=== PATIENT | male | born 1975 | race Caucasian/White ===

== ENCOUNTER 2021-08-29 15:22 | Emergency (ER) | payer OTHER, SELFPAY ==
[2021-08-29 15:27] VITALS: BP 151/78; PULSE 100; RESP 16; TEMP 36.6; O2SAT 97
--- NOTE | 2021-08-29 15:32 | ED.URI ---
HPI - URI/Sore Throat General Chief Complaint: Upper Respiratory Infection Stated Complaint: uri Time Seen by Provider: 08/29/21 15:35 Source: patient, family, RN notes reviewed and old records reviewed Mode of arrival: ambulatory Limitations: no limitations History of Present Illness HPI Narrative: 46-year-old male presents to the [facility] with complaints of nasal congestion and sinus pain for 3 days. Has tried a couple [id number] things minimal to no relief. Wanted to make sure he did not have anything that needed an antibiotic. MD elicited complaint: nasal congestion and sinus pain Related Data Home Medications Medication Instructions Recorded Confirmed dapagliflozin-metformin [Xigduo XR] 10 tablet PO DAILY 08/29/21 08/29/21 lisinopril 5 mg PO DAILY 08/29/21 08/29/21 loratadine 10 mg PO DAILY 08/29/21 08/29/21 semaglutide [Rybelsus] 7 mg PO DAILY 08/29/21 08/29/21 Allergies Allergy/AdvReac Type Severity Reaction Status Date / Time Sulfa (Sulfonamide Allergy Unknown itching Verified 03/01/19 17:14 Antibiotics) Review of Systems Review of Systems: All systems reviewed & are unremarkable except as noted in HPI and below Constitutional: Constitutional: Reports no additional constitutional complaints, Denies chills, Denies fever(s) and Denies headache(s) Eyes: Eyes: Reports no additional eye complaints ENT: Reports as per HPI, Denies vertigo, Denies dizziness, Denies headache(s), Reports nasal congestion and Reports sore throat Cardiovascular: Cardiovascular: Reports no additional cardiovascular complaints, Denies chest pain, Denies syncope, Denies rapid heart rate and Denies dyspnea Respiratory: Respiratory: Reports no additional respiratory complaints, Denies cough, Denies dyspnea and Denies wheezing Gastrointestinal: Gastrointestinal: Reports no additional gastrointestinal complaints, Denies abdominal pain, Denies diarrhea, Denies nausea and Denies vomiting Musculoskeletal: Musculoskeletal: Reports no additional musculoskeletal complaints and Denies numbness Integumentary/Breasts: Skin/Breast: Reports system reviewed and no additional complaints, except as docu Neurologic: Reports system reviewed and no additional complaints, except as documented, Denies vertigo, Denies dizziness, Denies syncope, Denies headache(s), Denies focal weakness and Denies numbness Psychiatric: Psychiatric: Reports no additional psychiatric complaints Allergic/Immunologic: Allergic/Immunologic: Reports no additional allergic/immunologic complaints and Denies wheezing PMFSH Comments At the time of my signature, I reviewed and agree with the nursing past medical, surgical, social, and family history. There is no relevant family history pertinent to the patient complaint. Exam Const: General: cooperative, healthy appearing, no acute distress, well developed and alert Nutritional Appearance: well nourished Orientation/consciousness: patient oriented x3 Limitations: no limitations HENMT: Head: normal to inspection Ears: external ears normal, EAC's normal and Abnormal EAC present Mouth: Yes moist mucous membranes Throat: tonsils normal, uvula midline and postnasal drainage Eyes: Conjunctivae: conjunctivae normal Pupils: Equal, round and reactive pupils present Neck: Neck: normal visual inspection, no lymphadenopathy and no meningeal signs Chest: Chest palpation & inspection: normal inspection of the chest Resp: Effort & Inspection: normal respiratory effort and no use of accessory muscles Auscultation: clear to auscultation bilaterally, no crackles, no rales, no rhonchi and no wheezes Cardio: Rate: regular rate Rhythm: regular rhythm Back/Spine/Pelvis: Back: no CVA tenderness Skin: General skin exam: normal color Rashes: no rashes Wounds: no wounds Neuro: General: patient oriented x3, moves all extremities, no meningeal signs and no focal motor deficits Cranial nerves: Yes Equal, round and reactive pupils present
== END 2021-08-29 15:50 | disposition home or self-care (01) ==
PROVIDERS: Emergency Provider Nurse Practitioner
DX: J01.40 Acute pansinusitis, unspecified (principal)
CPT/HCPCS: 99213; G0463

== ENCOUNTER 2024-07-17 10:26 | Emergency (ER) | payer OTHER, SELFPAY ==
[2024-07-17 10:36] VITALS: BP 151/83; PULSE 90; RESP 16; TEMP 36.8; O2SAT 99
--- NOTE | 2024-07-17 11:12 | ED.URI ---
HPI - URI/Sore Throat General Chief Complaint: Upper Respiratory Infection Stated Complaint: Cough/Runny Nose/Chills Source: patient, RN notes reviewed and old records reviewed Mode of arrival: ambulatory Limitations: no limitations History of Present Illness HPI Narrative: 49 year old male presents to [facility] care with complaints of cough, nasal congestion and drainage, and some chills with no known fevers starting this morning. Patient reports that son tested positive for Influenza B on Wednesday and has been very sick. Patient reports that he has not had any fever but has had some chills and concerned he had contracted flu also from being exposed by son. Patient has not taken any OTC medications for his symptoms. MD elicited complaint: cough, rhinorrhea, nasal congestion and other (some chills) Onset (ago): day(s) (today) Severity: mild Description of mucous: clear Able to tolerate fluids by mouth: Yes Treatments prior to arrival: none Related Data Home Medications ?Medication ?Instructions ?Recorded ?Confirmed ?Last Taken ?Type dapagliflozin propaned 10 10 tablet PO DAILY 08/29/21 08/29/21 Unknown History mg-metformin ER 1,000 mg tablet,ext rel 24hr (Xigduo XR) lisinopril 5 mg tablet 5 mg PO DAILY 08/29/21 07/17/24 Unknown History loratadine 10 mg tablet 10 mg PO DAILY 08/29/21 08/29/21 Unknown History semaglutide 7 mg tablet (Rybelsus) 7 mg PO DAILY 08/29/21 08/29/21 Unknown History Allergies Allergy/AdvReac Type Severity Reaction Status Date / Time Sulfa (Sulfonamide Allergy Unknown itching Verified 07/17/24 10:42 Antibiotics) Review of Systems Review of Systems: CONSTITUTIONAL: Denies malaise,positive for chills, no sweats, or no fever. EYES: Denies visual changes, redness, or discharge. ENT: Reports rhinorrhea, congestion, no sinus pain, no otalgia and no sore throat. CARDIOVASCULAR: Denies chest pain, palpitations, or edema. RESPIRATORY: Reports cough.? Denies dyspnea. GASTROINTESTINAL: Denies abdominal pain, nausea, vomiting, diarrhea SKIN: Denies rash or itching. MUSCULOSKELETAL: Denies myalgia. NEUROLOGIC: Denies headache. All systems reviewed & are unremarkable except as noted in HPI and below PMFSH Past Medical History Medical History (Updated 07/17/24 @ 11:43 by Silvina Martin NP) Kidney stone Hyperlipidemia Diabetes Hypertension Surgical History Surgical History (Updated 07/17/24 @ 11:39 by Silvina Martin NP) Hx of cholecystectomy H/O gastric sleeve H/O left wrist surgery ORIF with plates and screws Social History Social History (Updated 07/17/24 @ 11:37 by Silvina Martin NP) Smoking status: Never smoker Alcohol intake: current Alcohol use details: social Substance use type: does not use Gender identity (if verbalized by the patient): Male Comments At time of signature, agree with nursing past medical, surgical, social and family history. There is no relevant family history pertinent to the presenting complaint Exam Narrative: GENERAL: Well-appearing, well-nourished, and in no acute distress. HEAD: Normocephalic EYES: PERRLA, conjunctivae clear ENT: Nares clear, turbinates edematous and erythematous, clear discharge. Mucous membranes moist. TM pearly kim with dull light reflex bilaterally; no tragal tenderness. Oropharynx erythematous without lesions. Tonsils not enlarged and without exudate, no drooling, no hoarseness, no trismus, uvula midline.post nasal drainage NECK: Supple. No lymphadenopathy CHEST: Clear to auscultation, breath sounds equal. No wheezing, rhonchi, rales, or stridor. No respiratory distress, speaks in full sentences.dry cough noted SAO2 99% on room air HEART: Regular rate and rhythm. No murmur heard. SKIN: Warm, dry, no rash. NEURO: Alert and oriented x3. PSYCH: Normal mood and affect Course Course Emergency Course: Patient is aware of diagnosis, understands and agrees to treatment plan.? Anticipatory guidance given.? Patient agrees to follow-up as directed and is aware of reasons to seek care at the emergency department. Portions of this record may have been created with voice recognition software Level of Care: Express Care Visit Vital Signs Vital signs: Vital Signs Temperature 36.8 C 07/17/24 10:36 Pulse Rate 90 07/17/24 10:36 Respiratory Rate 16 07/17/24 10:36 Blood Pressure 151/83 H 07/17/24 10:36 Pulse Oximetry 99 07/17/24 10:36 Oxygen Delivery Room Air 07/17/24 10:36 Temperature 36.8 C 07/17/24 10:36 Pulse Rate 90 07/17/24 10:36 Respiratory Rate 16 07/17/24 10:36 Blood Pressure 151/83 H 07/17/24 10:36 Pulse Oximetry 99 07/17/24 10:36 Oxygen Delivery Room Air 07/17/24 10:36 Reviewed MDM - URI/Sore Throat MDM Narrative Medical decision making narrative: Differential diagnosis considered: Mcdermott virus, strep pharyngitis, allergic rhinitis, upper respiratory tract infection, sinusitis, rhinosinusitis, nasopharyngitis. viral pharyngitis, otitis media, otitis externa, pneumonia, bronchitis, viral cough syndrome, viral syndrome, and influenza.? Exam findings show no acute concerns or changes; patient is non-toxic appearing and is in no distress.? Patient is appropriate for outpatient treatment and follow-up. Differential Diagnosis Differential diagnosis: Likely upper respiratory infection, viral infection, influenza and other (COVID, eposure to influenza, cough) Medical Records Attestation: I reviewed the patient's medical records. Lab Data Attestation: I reviewed the patient's lab results. Lab results narrative: Influenza A negative, Influenza B negative, COVID negative Labs: Lab Results 07/17/24 Range/Units 10:42 POC Influenza A Ag Negative (Negative) POC Influenza B Ag Negative (Negative) POC SARS CoV-2 Ag Negative (Negative) Critical Care Time Critical Care Time Critical Care Time: No Discharge Plan Discharge Clinical Impression: Exposure to influenza Upper respiratory infection Qualifiers: URI type: unspecified URI Qualified Code(s): J06.9 - Acute upper respiratory infection, unspecified Patient Disposition: Home, Self-Care Condition: Stable Instructions: Antibiotic Form, Upper Respiratory Infection (ED) Additional Instructions: Increase fluids especially juices and water Nidp-dtf-[id number] cough and cold medicine of your choice for your symptoms Zyrtec Claritin or Priya daily Tylenol or ibuprofen for any fever pain Continue your nasal spray daily heat to the face 20-30 minutes 4-6 times a day for pain Salt water gargles, throat lozenges or throat sprays as desired If your symptoms persist, change or worsen significantly before you can contact your personal physician then please, without delay, go to the emergency department for further evaluation. Follow-up with PCP in 7-10 days or sooner if needed Follow up with PCP soon in regards to your blood pressure which is elevated above threshold for referral. Blood pressure above 120/80 may indicate pre-hypertension.151/83 Retest for COVID tomorrow Patient Language: Iranian Prescriptions: No Action Xigduo XR 10-1,000 mg tablet, IR - ER, biphasic 24hr 10 tablet PO DAILY lisinopril 5 mg tablet 5 mg PO DAILY loratadine 10 mg tablet 10 mg PO DAILY Rybelsus 7 mg tablet 7 mg PO DAILY methylprednisolone [Methylpred DP] 4 mg tablets,dose pack See Rx Instructions PO .COMPLEX Qty: 21 0RF Rx Instructions: orally per package directions fluticasone propionate [Flonase Allergy Relief] 50 mcg/actuation spray,suspension 2 spray intranasal DAILY Qty: 16 0RF Rx Instructions: administer into each nostril Follow-up/Referrals: PHYSICIAN NOT ON STAFF,NONSTAFF [Primary Care Provider] - Time of Disposition: 11:29 Quality [place] Coma Scale Eyes: Open Verbal: Oriented and Alert Motor: Follows Commands Logan Coma Total Score: 15
[2024-07-17 11:26] LABS: EDCOVIDSCREEN Negative (Negative); EDINFLUASCREEN Negative (Negative); EDINFLUBSCREEN Negative (Negative)
--- OUTSIDE RECORDS SUMMARY | 2024-07-17 11:31 | XMS_ITS | Clinical Summary ---
Author Organization [facility] Address [address] [place] [address] Care Team Providers Care Meat Team Lead Name Role Phone Unavailable Primary Care Provider Unavailabl e Encounters Date Type Department Care Team Description 07/12/2024 External Device Data [facility]CTION Provider, Abstract 07/11/2024 External Device Data [facility] Provider, Abstract 07/04/2024 External Device Data [facility] Provider, Abstract from Last 3 Months Social History Tobacco Use Types Packs/Day Years Used Date Smoking Tobacco: Never Assessed Sex and Gender Information Value Date Recorded Sex Assigned at Not on file 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 Gender Identity Not on file Sexual Orientation Not on file Plan of Treatment Health Maintenance Due Date Last Done Comments PNEUMOCOCCAL VACCINE 0-64 YE ARS (1 of 2 - PCV) 1982 DIABETES ANNUAL RETINAL EXAM 1994 DIABETES MICROALBUMIN ANNUAL SCREEN 1994 LDL CHOLESTEROL ANNUAL 1994 HEPATITIS B VACCINES (1 of 3 - 19+ 3-dose series) 1995 COLORECTAL SCREENING 2021 Colorectal Cancer Screening 2021 FIT-DNA Q 3 years 2021 FIT/FOBT Q 1 year 2021 Flex Sig/CT Colonography Q 5 years 2021 DIABETES ANNUAL FOOT EXAM 02/12/2023 02/12/2022 INFLUENZA VACCINE (#1) 2024 04/18/2020, 2018 COVID-19 Vaccine (2023- season) 2024 05/27/2021, 08/29/2020, 08/08/2020 DIABETES HBA1C Q 6 MONTHS 06/10/2024 12/10/2023 DTAP/TDAP/TD VACCINES (2 - T d or Tdap) 10/11/2032 10/11/2022 Insurance [employer] CHOICE POS II
== END 2024-07-17 11:33 | disposition home or self-care (01) ==
PROVIDERS: Emergency Provider Registered Nurse
DX: J06.9 Acute upper respiratory infection, unspecified (principal); Z20.818 Contact with and (suspected) exposure to other bacterial communicable diseases; Z20.822 Contact with and (suspected) exposure to COVID-19; I10 Essential (primary) hypertension; E11.9 Type 2 diabetes mellitus without complications; Z79.84 Long term (current) use of oral hypoglycemic drugs; E78.5 Hyperlipidemia, unspecified; Z98.84 Bariatric surgery status
CPT/HCPCS: 87426; 87804; 99213; G0463